=== PATIENT | male | born 1935 | race Caucasian/White ===

== ENCOUNTER 2019-08-29 11:27 | Emergency (ER) | payer MEDICARE, MEDICAID, SELFPAY ==
[2019-08-29] VITALS (9 sets, daily range): BP systolic 107–133; BP diastolic 64–101; PULSE 59–72; RESP 16–18; TEMP 36.6–37.1; O2SAT 95–97; BMI 21.1
--- NOTE | 2019-08-29 11:21 | ED_ITS ---
Entered by Callie Puga, acting as scribe for Melvin Morales MD HPI - Chest Pain General: Stated Complaint: CP/SOB Coding Level of Care Code ED Electrical Products Engineer for Yoana Shannon
--- NOTE | 2019-08-29 11:21 | W.ED.CHESTPA ---
HPI - Chest Pain General: Stated Complaint: CP/SOB Coding Level of Care Code ED Cardiovascular Operating Room Nurse for Yoana Shannon
--- NOTE | 2019-08-29 11:22 | ED_ITS ---
Entered by Callie Puga, acting as scribe for Melvin Morales MD HPI - SOB/Dyspnea General: Chief Complaint: Shortness of Breath/Dyspnea Stated Complaint: CP/SOB Time Seen by Provider: 08/29/19 11:22 Source: patient Mode of arrival: EMS Limitations: no limitations History of Present Illness: HPI Narrative: 83 yo Male presents to ED with complaint of shortness of breath and chest pain that has resolved. Pt states that he became short of breath this morning. Pt states that he isn't having any pain at this time. Per EMS, patient was given aspirin prior to arrival. MD elicited complaint: shortness of breath and chest pain Pertinent past history: diabetes Onset (ago): hour(s) (this morning) Timing: improved Known history of: diabetes Associated symptoms: Reports chest pain; Deny abdominal pain, fever(s), nausea, polyuria or vomiting Review of Systems Const: Denies: fever or chills Eyes: Denies: change in vision ENMT: Denies: throat pain or mouth pain Card: Reports: chest pain Resp: Reports: shortness of breath GI: Denies: abdominal pain, nausea, vomiting or diarrhea Musc: Denies: back pain or joint pain Skin/Breast: Denies: rash Neuro: Denies: headache or behavioral changes Psych: Denies: depression Endo: Denies: excessive urination Geoff/Lymph: Denies: easy bruising All/Imm: Denies: hives PFSH ED PFSH: Statuses (acute, chronic, etc) shown below reflect problem list status as previously entered and may not be historically accurate Medical History (Updated 08/29/19 @ 14:37 by Melvin Morales MD) Acute OK (Acute) Borderline hyperlipidemia (Acute) CAD (coronary artery disease) (Acute) Diabetes (Acute) Diverticulitis (Acute) HTN (hypertension) (Acute) Hydrocele (Acute) Hyperglycemia (Acute) Renal insufficiency (Acute) Surgical History (Updated 08/29/19 @ 11:32 by Callie Puga) History of appendectomy (Acute) History of hernia repair (Acute) Social History Smoking and tobacco status: never smoked Physical Exam Const: COMMON NORMALS: no apparent distress, oriented x3 and healthy appearing HENMT: COMMON NORMALS: normocephalic and external nose normal HEAD & SCALP: normocephalic NOSE: external nose normal Eye: COMMON NORMALS: PERRL PUPIL: Yes PERRL Neck/C-Spine: COMMON NORMALS: full ROM and no lymphadenopathy Chest: COMMONS NORMALS: inspection of chest normal Resp: COMMON NORMALS: normal respiratory effort, no use of accessory muscles and clear to auscultation bilaterally AUSCULTATION: clear to auscultation chet aterally Cardio: COMMON NORMALS: regular rate and regular rhythm RATE: regular rate RHYTHM: regular rhythm GI: COMMON NORMALS: normal to inspection, nondistended, normoactive bowel sounds, soft to palpation, non-tender and no masses PALPATION: Yes soft Back/Pelvis: THORACIC SPINE/UPPER BACK: Yes normal to inspection Extremity: COMMON NORMALS: normal to inspection, full ROM and normal capillary refill Neuro: COMMON NORMALS: oriented x3 Psych: COMMON NORMALS: mental status grossly normal and cooperative Skin: COMMON NORMALS: no rashes or lesions noted GENERAL SKIN EXAM: no rashes or lesions noted Course Vital Signs: Vital signs: Vital Signs Temperature 98.8 F 08/29/19 16:35 Pulse Rate 70 08/29/19 16:35 Respiratory Rate 16 08/29/19 16:35 Blood Pressure 132/72 08/29/19 16:35 Pulse Oximetry 97 08/29/19 16:35 MDM - SOB/Dyspnea MDM Narrative: Medical decision making narrative: Patient presents here with chest pain and dyspnea that is resolved. Patient is well-appearing here and has normal EKGs and normal x-ray. Patient's repeat troponin was negative. Patient has no signs of acute coronary event. Patient is stable for discharge and is to follow-up with his primary care doctor in 3 to 5 days and return to the ER if worsening. Lab Data: Labs: Lab Results 08/29/19 08/29/19 08/29/19 Range/Units 11:50 11:50 11:50 WBC 3.8 L (4.0-10.0) 10^3/ uL RBC 4.19 (4.1-5.3) 10^6/u L Hgb 12.3 (11.7-16.6) g/dL Hct 36.9 L (42.0-52.0) % MCV 88.1 (80-94) fL MCH 29.4 (28.0-34.0) pg MCHC 33.3 (30.0-36.0) g/dL RDW 12.6 (12.1-15.1) % Plt Count 160 (130-400) 10^3/c mm MPV 10.7 H (7.4-10.4) fL Neut % (Auto) 67.7 % Lymph % (Auto) 21.5 % [place] % (Auto) 7.4 % Eos % (Auto) 2.9 % Baso % (Auto) 0.5 % Neut # (Auto) 2.5 (1.8-7.7) 10^3/u L Lymph # (Auto) 0.8 (0.8-4.8) 10^3/u L [place] # (Auto) 0.3 (0.2-0.9) 10^3/u L Eos # (Auto) 0.1 (0.0-0.8) 10^3/u L Baso # (Auto) 0.0 (0.0-0.1) 10^3/u L Nucleated RBC % (a uto) 0 % Nucleated RBCs # 0.0 /100WBC PT 15.70 H (10.5-13.3) SECO NDS INR 1.21 H (0.8-1.2) Sodium 140 (136-145) mmol/L Potassium 4.0 (3.5-5.1) mmol/L Chloride 104 (98-107) mmol/L Carbon Dioxide 26 (22-29) mmol/L Anion Gap 14.0 (5-19) BUN 19 (8-23) mg/dL Creatinine 1.0 (0.7-1.2) mg/dL Glucose 228 H (74-106) mg/dL Calcium 9.0 (8.8-10.2) mg/Dl Total Bilirubin 0.3 (0.15-1.2) mg/dL AST 11 (0-40) U/L ALT 10 (0-41) U/L Alkaline Phosphata se 75 (40-130) IU/L Troponin T Baselin e (0-15) ng/mL Troponin T 120 Min cherelle (0-15) ng/mL Delta Troponin T (0-10) ABS# NT-Pro-B Natriuret Pep 670 H (0-450) pg/mL Total Protein 6.6 (6.6-8.7) g/dL Albumin 3.6 (3.5-5.2) g/dL Globulin 3.0 (1.3-4.6) g/dL 08/29/19 08/29/19 Range/Units 11:50 13:51 WBC (4.0-10.0) 10^3/ uL RBC (4.1-5.3) 10^6/u L Hgb (11.7-16.6) g/dL Hct (42.0-52.0) % MCV (80-94) fL MCH (28.0-34.0) pg MCHC (30.0-36.0) g/dL RDW (12.1-15.1) % Plt Count (130-400) 10^3/c mm MPV (7.4-10.4) fL Neut % (Auto) % Lymph % (Auto) % [place] % (Auto) % Eos % (Auto) % Baso % (Auto) % Neut # (Auto) (1.8-7.7) 10^3/u L Lymph # (Auto) (0.8-4.8) 10^3/u L [place] # (Auto) (0.2-0.9) 10^3/u L Eos # (Auto) (0.0-0.8) 10^3/u L Baso # (Auto) (0.0-0.1) 10^3/u L Nucleated RBC % (a uto) % Nucleated RBCs # /100WBC PT (10.5-13.3) SECO NDS INR (0.8-1.2) Sodium (136-145) mmol/L Potassium (3.5-5.1) mmol/L Chloride (98-107) mmol/L Carbon Dioxide (22-29) mmol/L Anion Gap (5-19) BUN (8-23) mg/dL Creatinine (0.7-1.2) mg/dL Glucose (74-106) mg/dL Calcium (8.8-10.2) mg/Dl Total Bilirubin (0.15-1.2) mg/dL AST (0-40) U/L ALT (0-41) U/L Alkaline Phosphata se (40-130) IU/L Troponin T Baselin e 139 H* (0-15) ng/mL Troponin T 120 Min cherelle 137.70 H (0-15) ng/mL Delta Troponin T -1.30 L (0-10) ABS# NT-Pro-B Natriuret Pep (0-450) pg/mL Total Protein (6.6-8.7) g/dL Albumin (3.5-5.2) g/dL Globulin (1.3-4.6) g/dL Imaging Data^: CXR: Radiologist's impression: [address] [address] XRay Report Signed Patient: Dylan Antonio JRUnit #: [id number] : 1936Acct#:[id number] Age/Sex: 83 / MADM Date: 08/29/19 Loc: ERRoom/Bed: Attending Dr: Ordering Provider/Ordering MD: Melvin Morales MD Date of Service: 08/29/19 Procedure(s): XR chest 1V portable 26031 Accession Number(s): [id number] Report Number: [id number] WS: [id number] PORTABLE CHEST HISTORY: cough COMPARISON: 06/11/2019 Slight elevation of the RIGHT hemidiaphragm. Improved aeration of the RIGHT lower lobe and middle lobe. No pneumonia. Normal vasculature. No pleural effusion or pneumothorax. Cardiac size: Normal. Mediastinum/Aorta: 2 partially calcified ectatic aorta. No osseous abnormality seen. XR/XR chest 1V portable [id number] IMPRESSION: 1. Resolved pneumonia RIGHT middle lobe and RIGHT lower lobe. 2. Atherosclerosis aorta. Dictated By:Lalita Carroll DO Signed By:Lalita Carroll DOSigned Date/Time:08/29/19 1213 DD/ 1212 EKG Data^: EKG 1: Attestation: I personally reviewed and interpreted this EKG as follows: EKG Interpretation Date: 08/29/19 EKG interpretation time: 11:21 Interpretation: nsr hr [address] or t wave abnormalities qrs 108 qtc 461 incomplete rbb unchanged ekg from 06/11/19 EKG 2: Attestation: I personally reviewed and interpreted this EKG as follows: EKG Interpretation Date: 08/29/19 EKG interpretation time: 13:11 Interpretation: nsr hr [address] or t wave abnormalities qrs 114 qtc 476 rbbb unchanged from previous Discharge Plan Discharge Patient Disposition: Home, Self-Care Clinical Impression: Acute dyspnea Condition: Stable Prescriptions: No Action carvedilol 6.25 mg Tablet 6.25 mg PO BID RF: 0 isosorbide mononitrate 30 mg Tablet Extended Release 24 Hr 60 mg PO QAM RF: 0 Zoloft 100 mg Tablet 200 mg PO BEDTIME RF: 0 Plavix 75 mg Tablet 75 mg PO DAILY RF: 0 Aspir-81 81 mg Tablet,Delayed Release (Dr/Ec) 81 mg PO DAILY RF: 0 Flomax 0.4 mg Capsule 0.4 mg PO DAILY RF: 0 Zocor 20 mg Tablet 20 mg PO DAILY RF: 0 Zantac 150 mg Tablet 150 mg PO BID RF: 0 lisinopril 10 mg Tablet 10 mg PO DAILY RF: 0 Nitrostat 0.4 mg Tablet, Sublingual 0.4 mg SUBLINGUAL Q5M PRN (Reason: Chest Pain) RF: 0 Levemir FlexTouch U-100 Insuln 100 unit/mL (3 mL) Insulin Pen See Rx Instructions .ROUTE .COMPLEX RF: 0 Discharge Orders: Discharge Order (Routine); Ordered 08/29/19 Ordered By: Melvin Morales Referrals: Tiffany Jain DO [Family Provider] - 4-7 days Discharge Diet: Advance as tolerated Discharge Activity: Resume usual activity Patient Instructions: Dyspnea (ED) Discharge Date/Time: 08/29/19 16:00 Coding Level of Care Code ED Library Science Professor for Chg Fwd Exam Problem Focused The documentation recorded by the Edd tobar Carmen, accurately reflects the service I personally performed and the decisions made by Carmen martin Korby, MD
--- NOTE | 2019-08-29 11:24 | XR_ITS ---
WS: [id number] PORTABLE CHEST HISTORY: cough COMPARISON: 06/11/2019 Slight elevation of the RIGHT hemidiaphragm. Improved aeration of the RIGHT lower lobe and middle lob e. No pneumonia. Normal vasculature. No pleural effusion or pneumothorax. Cardiac size: Normal. Mediastinum/Aorta: 2 partially calcified ectatic aorta. No osseous abnormality seen. XR/XR chest 1V portable [id number] IMPRESSION: 1. Resolved pneumonia RIGHT middle lobe and RIGHT lower lobe. 2. Atherosclerosis aorta.
--- NOTE | 2019-08-29 11:25 | ECG_ITS ---
Measurements Intervals [place] Rate: 72 P: 45 [place]: 253 QRS: -22 QRSD: 108 T: 97 QT: 437 QTc: 480 SINUS RHYTHM WITH FIRST DEGREE AV BLOCK BORDERLINE LEFT AXIS DEVIATION [QRS AXIS < -20] INCOMPLETE RIGHT BUNDLE BRANCH BLOCK [90+ ms QRS DURATION, TERMINAL R IN V1/V2, 40+ ms S IN I/aVL/V4/V5/V6] ABNORMAL QRS-T ANGLE [QRS-T AXIS DIFFERENCE > 60] PROLONGED QT INTERVAL Compared to ECG 06/11/2019 14:42:58 Incomplete right bundle-branch block now present Prolonged QT interval now present Left anterior fascicular block no longer present Electronically Signed On 08-29-2019 17:22:30 TRAINING MANAGER by Jasvir Ospina M.D. [id number]
[2019-08-29 12:01] LABS: Basophils % 0.5 %; Eosinophils # 0.1 10^3/uL (0.0-0.8); Eosinophils % 2.9 %; Hematocrit 36.9 % (42.0-52.0); Hemoglobin 12.3 g/dL (11.7-16.6); Lymphocytes # 0.8 10^3/uL (0.8-4.8); Lymphocytes % 21.5 %; Mean Corpuscular HGB Conc 33.3 g/dL (30.0-36.0); Mean Corpuscular Hemoglobin 29.4 pg (28.0-34.0); Mean Corpuscular Volume 88.1 fL (80-94); Mean Platelet Volume 10.7 fL (7.4-10.4); Monocytes # 0.3 10^3/uL (0.2-0.9); Monocytes % 7.4 %; Neutrophils # 2.5 10^3/uL (1.8-7.7); Neutrophils % 67.7 %; Nucleated Red Blood Cells % 0 %; Platelet Count 160 10^3/cmm (130-400); Red Blood Count 4.19 10^6/uL (4.1-5.3); Red Cell Distribution Width 12.6 % (12.1-15.1); White Blood Count 3.8 10^3/uL (4.0-10.0)
[2019-08-29 12:14] LABS: INR 1.21 (0.8-1.2)
[2019-08-29 12:32] LABS: Alanine Aminotransferase 10 U/L (0-41); Albumin Level 3.6 g/dL (3.5-5.2); Alkaline Phosphatase 75 IU/L (40-130); Aspartate Amino Transferase 11 U/L (0-40); Blood Urea Nitrogen 19 mg/dL (8-23); Carbon Dioxide 26 mmol/L (22-29); Chloride 104 mmol/L (98-107); Glucose 228 mg/dL (74-106); NT Pro B Type Natriuretic Pept 670 pg/mL (0-450); Sodium 140 mmol/L (136-145); Total Bilirubin 0.3 mg/dL (0.15-1.2); Total Protein 6.6 g/dL (6.6-8.7)
[2019-08-29 12:38] LABS: Troponin(5th) Baseline 139 ng/mL (0-15)
--- NOTE | 2019-08-29 13:25 | ECG_ITS ---
Measurements Intervals [place] Rate: 64 P: 18 MT: 266 QRS: -38 QRSD: 114 T: 91 QT: 467 QTc: 482 SINUS RHYTHM WITH FIRST DEGREE AV BLOCK LEFT AXIS DEVIATION [QRS AXIS < -30] INCOMPLETE RIGHT BUNDLE BRANCH BLOCK [90+ ms QRS DURATION, TERMINAL R IN V1/V2, 40+ ms S IN I/aVL/V4/V5/V6] ABNORMAL QRS-T ANGLE [QRS-T AXIS DIFFERENCE > 60] PROLONGED QT INTERVAL Compared to ECG 06/11/2019 14:42:58 Left-axis deviation now present Incomplete right bundle-branch block now present Prolonged QT interval now present Left anterior fascicular block no longer present Electronically Signed On 08-29-2019 17:29:28 LICENSED INSURANCE AGENT by Jasvir Ospina M.D. [id number]
== END 2019-08-29 16:00 | disposition home or self-care (01) ==
LOC: ER 14:41
PROVIDERS: Emergency Provider Emergency Medicine; Family Provider Family Medicine
DX: R06.00 Dyspnea, unspecified (principal); Z79.02 Long term (current) use of antithrombotics/antiplatelets; Z79.82 Long term (current) use of aspirin; Z79.4 Long term (current) use of insulin; I25.2 Old myocardial infarction; E78.5 Hyperlipidemia, unspecified; I25.10 Atherosclerotic heart disease of native coronary artery without angina pectoris; E11.9 Type 2 diabetes mellitus without complications; I10 Essential (primary) hypertension
CPT/HCPCS: 36415; 71045; 80053; 83880; 84484; 85025; 85610; 93005; 99282

== ENCOUNTER 2019-09-12 04:09 | Inpatient (IN) | payer MEDICARE, MEDICAID, SELFPAY ==
[2019-09-12] VITALS (10 sets, daily range): BP systolic 116–206; BP diastolic 66–104; PULSE 71–114; RESP 16–32; TEMP 36.6–37.3; O2SAT 90–94; BMI 21.7
--- NOTE | 2019-09-12 04:17 | ED_ITS ---
Entered by Macy Harding, acting as scribe for Sergio Nash DO HPI - Chest Pain General: Chief Complaint: Chest Pain Stated Complaint: chest pain/sob Time Seen by Provider: 09/12/19 04:17 Source: EMS Mode of arrival: EMS History of Present Illness: HPI narrative: 83 y/o male presents to the ED with complaint of chest pain and SOB. Pt was seen here recently for the same symptoms. EMS reports his pressure was 220/130 upon their arrival. Pt had relief of pain after NTG/aspirin/morphine (05/19 to 09/19). MD complaint: chest pain Onset (ago): hour(s) Prior episodes: Yes Onset: during rest Severity: moderate Pain scale (0-10): 2 Relieving factors: nitroglycerin Associated symptoms: Reports dyspnea; Deny abdominal pain, fever(s), nausea, palpitations or vomiting Treatment prior to arrival: aspirin and nitroglycerin Review of Systems Const: Denies: fever or chills Eyes: Denies: change in vision or blurry vision ENMT: Denies: post nasal drip or facial/sinus pain Card: Reports: chest pain and shortness of breath when lying down; Denies: palpitations, irregular heart rhythm, edema or swelling of feet/ankles Resp: Reports: shortness of breath and non-productive cough; Denies: productive cough or wheezing GI: Denies: abdominal pain, nausea, vomiting, rectal pain, blood in stool or black tarry stool : Denies: difficulty urinating or blood in urine Musc: Reports: back pain; Denies: redness or joint warmth Skin/Breast: Denies: rash, itching or redness Neuro: Reports: weakness in extremities; Denies: headache or seizure-like activity PFSH ED PFSH: Statuses (acute, chronic, etc) shown below reflect problem list status as previously entered and may not be historically accurate Medical History (Updated 09/12/19 @ 06:14 by Elvin Evnas MD) Acute OK (Acute) Aspiration pneumonia (Acute) Borderline hyperlipidemia (Acute) CAD (coronary artery disease) (Acute) CVA (cerebral vascular accident) (Acute) Diabetes (Acute) Diverticulitis (Acute) HTN (hypertension) (Acute) Hydrocele (Acute) Hyperglycemia (Acute) Ischemic cardiomyopathy (Acute) Myocardial infarction (Acute) Renal insufficiency (Acute) Surgical History (Updated 08/29/19 @ 11:32 by Callie Puga) History of appendectomy (Acute) History of hernia repair (Acute) Social History (Updated 09/12/19 @ 06:14 by Elvin Evans MD) Smoking and tobacco status: never smoked Alcohol intake: never Substance/Drug Use: never Housing: Prison Physical Exam Const: GENERAL APPEARANCE: lethargic ORIENTATION/CONSCIOUSNESS: Yes lethargic HENMT: COMMON NORMALS: normocephalic, external ears normal and external nose normal HEAD & SCALP: normocephalic; no scalp tenderness FACE & SINUS: normal facial exam NOSE: external nose normal and no nasal discharge EXTERNAL EAR: Yes external ears normal TEETH & GINGIVA: no abnormal tooth and associated gingiva Eye: COMMON NORMALS: EOMs intact bilaterally EYELID: eyelids normal CONJUNCTIVA: Yes conjunctiva abnormal and Yes other (right eye conjunctival injection/swelling) Chest: COMMONS NORMALS: inspection of chest normal CHEST: No tenderness Resp: EFFORT & INSPECTION: Yes tachypneic, Yes respiratory distress (mild), No retractions, No uses accessory muscles and No tracheal deviation AUSCULTATION: rales bilateral, no rhonchi, no wheezes and lung sounds not diminished Cardio: COMMON NORMALS: regular rhythm RATE: tachycardic RHYTHM: regular rhythm HEART SOUNDS: no murmurs PERIPHERAL PULSES: radial pulses present GI: INSPECTION: No abdominal distension AUSCULTATION: No hyperactive bowel sounds and No hypoactive bowel sounds PALPATION: No guarding and No rigid PERCUSSION: no dullness to percussion and no tympanic to percussion Extremity: OTHER: no LE edema Neuro: SENSORIUM/ORIENTATION: Yes lethargic Skin: COMMON NORMALS: no rashes or lesions noted GENERAL SKIN EXAM: no rashes or lesions noted and pallor Course ED course: 83-year-old gentleman who awoke with acute onset chest pain and shortness of breath this morning. His pain was 10 out of 10. He was quite hypertensive with blood pressures in the 220s systolic. He improved with nitroglycerin in the ambulance on the way here to some degree. He has Nitropaste on his chest, and his pain is much improved. His blood pressure is 160 systolic. His heart rates down from 1 30-1 15. His saturations are above 90% on 5 L high flow nasal cannula. His white blood cell count is 5. His hemoglobin is 13. His potassium is 3.2. His first troponin is 100. His creatinine is only 1. His BNP is not terribly elevated, but given the acute nature, may not have had time to elevate. His chest x-ray shows an effusion in the right base and to a lesser degree right base. Consultations: Consultation #1: floridalma Time: 06:10 Vital Signs: Vital signs: Vital Signs Temperature 98.4 F 09/12/19 05:59 Pulse Rate 113 H 09/12/19 05:59 Respiratory Rate 32 H 09/12/19 05:59 Blood Pressure 167/90 09/12/19 05:59 Pulse Oximetry 92 09/12/19 05:59 MDM - Chest Pain Lab Data: Labs: Lab Results 09/12/19 09/12/19 09/12/19 Range/Units 04:30 04:50 05:00 WBC 5.0 (4.0-10.0) 10^3/ uL RBC 4.32 (4.1-5.3) 10^6/u L Hgb 12.7 (11.7-16.6) g/dL Hct 38.7 L (42.0-52.0) % MCV 89.6 (80-94) fL MCH 29.4 (28.0-34.0) pg MCHC 32.8 (30.0-36.0) g/dL RDW 12.1 (12.1-15.1) % Plt Count 135 (130-400) 10^3/c mm MPV 10.2 (7.4-10.4) fL Neut % (Auto) 86.8 % Lymph % (Auto) 6.7 % [place] % (Auto) 5.1 % Eos % (Auto) 0.8 % Baso % (Auto) 0.4 % Neut # (Auto) 4.3 (1.8-7.7) 10^3/u L Lymph # (Auto) 0.3 L (0.8-4.8) 10^3/u L [place] # (Auto) 0.3 (0.2-0.9) 10^3/u L Eos # (Auto) 0.0 (0.0-0.8) 10^3/u L Baso # (Auto) 0.0 (0.0-0.1) 10^3/u L Nucleated RBC % (a uto) 0 % Nucleated RBCs # 0.0 /100WBC PT (10.5-13.3) SECO NDS INR (0.8-1.2) APTT (23.9-36.7) SECO NDS Specimen Type Arterial Sample Site Radial, right ABG pH 7.38 (7.35-7.45) ABG pCO2 42.4 (35-45) mmHg ABG pO2 68.1 L (80.0-100.0) mmH g ABG HCO3 25.2 (22-26) mmol/L ABG Base Excess -0.1 (-2.0-2.0) mmol/ L Mark Test Pos Hematocrit 39.7 L (42-52) % O2 Delivery Device [employer] ID ellpe Sodium (136-145) mmol/L Potassium (3.5-5.1) mmol/L Chloride (98-107) mmol/L Carbon Dioxide (22-29) mmol/L Anion Gap (5-19) BUN (8-23) mg/dL Creatinine (0.7-1.2) mg/dL Glucose (74-106) mg/dL Lactate (0.5-2.2) mmol/L Calcium (8.5-10.5) mg/dL Total Bilirubin (0.15-1.2) mg/dL AST (0-40) U/L ALT (0-41) U/L Alkaline Phosphata se (40-130) IU/L Troponin T Baselin e (0-15) ng/mL NT-Pro-B Natriuret Pep (0-450) pg/mL Total Protein (6.6-8.7) g/dL Albumin (3.5-5.2) g/dL Globulin (1.3-4.6) g/dL Urine Color (Yellow) Urine Appearance (CLEAR) Urine pH (5-7) Ur Specific Gravit y (1.005-1.030) Urine Protein (Negative) Urine Glucose (UA) (Normal) Urine Ketones (Negative) Urine Occult Blood (Negative) Urine Nitrate (Negative) Urine Bilirubin (NEGATIVE) Urine Urobilinogen (Negative) mg/dL Ur Leukocyte [place] ase (Negative) Urine RBC (0-2) /hpf Urine WBC (0-5) /hpf Ur Squamous Epith Cells (0-5) Urine Bacteria (NONE) Influenza Type A A g Negative (Negative) POC Influenza B Ag Negative (Negative) 09/12/19 09/12/19 09/12/19 Range/Units 05:00 05:00 05:00 WBC (4.0-10.0) 10^3/ uL RBC (4.1-5.3) 10^6/u L Hgb (11.7-16.6) g/dL Hct (42.0-52.0) % MCV (80-94) fL MCH (28.0-34.0) pg MCHC (30.0-36.0) g/dL RDW (12.1-15.1) % Plt Count (130-400) 10^3/c mm MPV (7.4-10.4) fL Neut % (Auto) % Lymph % (Auto) % [place] % (Auto) % Eos % (Auto) % Baso % (Auto) % Neut # (Auto) (1.8-7.7) 10^3/u L Lymph # (Auto) (0.8-4.8) 10^3/u L [place] # (Auto) (0.2-0.9) 10^3/u L Eos # (Auto) (0.0-0.8) 10^3/u L Baso # (Auto) (0.0-0.1) 10^3/u L Nucleated RBC % (a uto) % Nucleated RBCs # /100WBC PT 15.70 H (10.5-13.3) SECO NDS INR 1.20 (0.8-1.2) APTT 30.0 (23.9-36.7) SECO NDS Specimen Type Sample Site ABG pH (7.35-7.45) ABG pCO2 (35-45) mmHg ABG pO2 (80.0-100.0) mmH g ABG HCO3 (22-26) mmol/L ABG Base Excess (-2.0-2.0) mmol/ L Mark Test Hematocrit (42-52) % O2 Delivery Device [employer] ID Sodium 141 (136-145) mmol/L Potassium 3.2 L (3.5-5.1) mmol/L Chloride 103 (98-107) mmol/L Carbon Dioxide 24 (22-29) mmol/L Anion Gap 17.2 (5-19) BUN 18 (8-23) mg/dL Creatinine 1.0 (0.7-1.2) mg/dL Glucose 187 H (74-106) mg/dL Lactate 1.4 (0.5-2.2) mmol/L Calcium 9.3 (8.5-10.5) mg/dL Total Bilirubin 0.5 (0.15-1.2) mg/dL AST 14 (0-40) U/L ALT 11 (0-41) U/L Alkaline Phosphata se 85 (40-130) IU/L Troponin T Baselin e (0-15) ng/mL NT-Pro-B Natriuret Pep 344 (0-450) pg/mL Total Protein 7.4 (6.6-8.7) g/dL Albumin 4.2 (3.5-5.2) g/dL Globulin 3.2 (1.3-4.6) g/dL Urine Color (Yellow) Urine Appearance (CLEAR) Urine pH (5-7) Ur Specific Gravit y (1.005-1.030) Urine Protein (Negative) Urine Glucose (UA) (Normal) Urine Ketones (Negative) Urine Occult Blood (Negative) Urine Nitrate (Negative) Urine Bilirubin (NEGATIVE) Urine Urobilinogen (Negative) mg/dL Ur Leukocyte [place] ase (Negative) Urine RBC (0-2) /hpf Urine WBC (0-5) /hpf Ur Squamous Epith Cells (0-5) Urine Bacteria (NONE) Influenza Type A A g (Negative) POC Influenza B Ag (Negative) 09/12/19 09/12/19 Range/Units 05:00 05:08 WBC (4.0-10.0) 10^3/ uL RBC (4.1-5.3) 10^6/u L Hgb (11.7-16.6) g/dL Hct (42.0-52.0) % MCV (80-94) fL MCH (28.0-34.0) pg MCHC (30.0-36.0) g/dL RDW (12.1-15.1) % Plt Count (130-400) 10^3/c mm MPV (7.4-10.4) fL Neut % (Auto) % Lymph % (Auto) % [place] % (Auto) % Eos % (Auto) % Baso % (Auto) % Neut # (Auto) (1.8-7.7) 10^3/u L Lymph # (Auto) (0.8-4.8) 10^3/u L [place] # (Auto) (0.2-0.9) 10^3/u L Eos # (Auto) (0.0-0.8) 10^3/u L Baso # (Auto) (0.0-0.1) 10^3/u L Nucleated RBC % (a uto) % Nucleated RBCs # /100WBC PT (10.5-13.3) SECO NDS INR (0.8-1.2) APTT (23.9-36.7) SECO NDS Specimen Type Sample Site ABG pH (7.35-7.45) ABG pCO2 (35-45) mmHg ABG pO2 (80.0-100.0) mmH g ABG HCO3 (22-26) mmol/L ABG Base Excess (-2.0-2.0) mmol/ L Mark Test Hematocrit (42-52) % O2 Delivery Device [employer] ID Sodium (136-145) mmol/L Potassium (3.5-5.1) mmol/L Chloride (98-107) mmol/L Carbon Dioxide (22-29) mmol/L Anion Gap (5-19) BUN (8-23) mg/dL Creatinine (0.7-1.2) mg/dL Glucose (74-106) mg/dL Lactate (0.5-2.2) mmol/L Calcium (8.5-10.5) mg/dL Total Bilirubin (0.15-1.2) mg/dL AST (0-40) U/L ALT (0-41) U/L Alkaline Phosphata se (40-130) IU/L Troponin T Baselin e 105 H* (0-15) ng/mL NT-Pro-B Natriuret Pep (0-450) pg/mL Total Protein (6.6-8.7) g/dL Albumin (3.5-5.2) g/dL Globulin (1.3-4.6) g/dL Urine Color Yellow (Yellow) Urine Appearance Clear (CLEAR) Urine pH 5 (5-7) Ur Specific Gravit y 1.015 (1.005-1.030) Urine Protein 1+ H (Negative) Urine Glucose (UA) Trace H (Normal) Urine Ketones Negative (Negative) Urine Occult Blood Neg (Negative) Urine Nitrate Negative (Negative) Urine Bilirubin Neg (NEGATIVE) Urine Urobilinogen Norm (Negative) mg/dL Ur Leukocyte [place] ase Negative (Negative) Urine RBC Rare (0-2) /hpf Urine WBC 0-4 H (0-5) /hpf Ur Squamous Epith Cells 0-4 H (0-5) Urine Bacteria 1+ H (NONE) Influenza Type A A g (Negative) POC Influenza B Ag (Negative) Discharge Plan Discharge Prescriptions: No Action carvedilol 6.25 mg Tablet 6.25 mg PO BID RF: 0 isosorbide mononitrate 30 mg Tablet Extended Release 24 Hr 60 mg PO QAM RF: 0 sertraline [Zoloft] 100 mg Tablet 200 mg PO BEDTIME RF: 0 clopidogrel [Plavix] 75 mg Tablet 75 mg PO DAILY RF: 0 aspirin [Aspir-81] 81 mg Tablet,Delayed Release (Dr/Ec) 81 mg PO DAILY RF: 0 tamsulosin [Flomax] 0.4 mg Capsule 0.4 mg PO DAILY RF: 0 simvastatin [Zocor] 20 mg Tablet 20 mg PO DAILY RF: 0 ranitidine HCl [Zantac] 150 mg Tablet 150 mg PO BID RF: 0 lisinopril 10 mg Tablet 10 mg PO DAILY RF: 0 nitroglycerin [Nitrostat] 0.4 mg Tablet, Sublingual 0.4 mg SUBLINGUAL Q5M PRN (Reason: Chest Pain) RF: 0 Levemir FlexTouch U-100 Insuln 100 unit/mL (3 mL) Insulin Pen See Rx Instructions .ROUTE .COMPLEX RF: 0 Coding Level of Care Code ED Instructional Support Technician for Chg Shiva The documentation recorded by the Mehdi tobar Ashley, accurately reflects the service I personally performed and the decisions made by Saad martin Jeremy John, DO Sep 12, 2019 04:09
--- NOTE | 2019-09-12 04:25 | ECG_ITS ---
Measurements Intervals [place] Rate: 102 P: 56 [place]: 221 QRS: -65 QRSD: 120 T: 87 QT: 356 QTc: 465 SINUS TACHYCARDIA WITH FIRST DEGREE AV BLOCK LEFT ANTERIOR FASCICULAR BLOCK [QRS AXIS <= -45, QR IN I, RS IN II] Compared to ECG 08/29/2019 13:11:28 Left anterior fascicular block now present Sinus rhythm no longer present Left-axis deviation no longer present Incomplete right bundle-branch block no longer present Prolonged QT interval no longer present Electronically Signed On 09-12-2019 20:58:04 ANGIOGRAPHER by Frieda Luna M.D. [id number]
--- NOTE | 2019-09-12 04:25 | XRR_ITS ---
PROCEDURE INFORMATION: Exam: XR Chest, 1 View Exam date and time: 09/12/2019 5:02 AM Age: 83 years old Clinical indication: Shortness of breath; Additional info: SOB TECHNIQUE: Imaging protocol: XR of the chest Views: 1 view. COMPARISON: CR XR chest 1V portable [id number] 08/29/2019 11:45 AM FINDINGS: Lungs: Somewhat limited exam. Mild basilar airspace consolidation left greater than right. Recommend followup 2 view chest. Lucency below the right hemidiaphragm is likely bowel. Pleural space: Unremarkable. No pleural effusion. No pneumothorax. Heart/Mediastinum: Unremarkable. No cardiomegaly. Bones/joints: Unremarkable. XR/XR chest 1V portable [id number] IMPRESSION: Somewhat limited exam. Mild basilar airspace consolidation left greater than right. Recommend followup 2 view chest. Lucency below the right hemidiaphragm is likely bowel.
[2019-09-12] MEDS: nitroglycerin 1 gm/inch oint Pkt 1.5 INCH TOPICAL (04:36)
[2019-09-12 04:41] LABS: ABG PCO2 42.4 mmHg (35-45); ABG PH Result 7.38 (7.35-7.45); Arterial Blood Gas Hematocrit 39.7 % (42-52); Base Excess ABG -0.1 mmol/L (-2.0-2.0); Blood Gas Allen Test Pos; Blood Gas Sample Site Radial, right; Blood Gas Sample Type Arterial; HCO3 ABG 25.2 mmol/L (22-26); Oxygen Device NC; PO2 ABG 68.1 mmHg (80.0-100.0)
[2019-09-12] MEDS: FUROsemide 10 mg/mL SDV 10mL 80 MG IVP (04:47)
[2019-09-12 05:11] LABS: Basophils % 0.4 %; Eosinophils % 0.8 %; Hematocrit 38.7 % (42.0-52.0); Hemoglobin 12.7 g/dL (11.7-16.6); Lymphocytes # 0.3 10^3/uL (0.8-4.8); Lymphocytes % 6.7 %; Mean Corpuscular HGB Conc 32.8 g/dL (30.0-36.0); Mean Corpuscular Hemoglobin 29.4 pg (28.0-34.0); Mean Corpuscular Volume 89.6 fL (80-94); Mean Platelet Volume 10.2 fL (7.4-10.4); Monocytes # 0.3 10^3/uL (0.2-0.9); Monocytes % 5.1 %; Neutrophils # 4.3 10^3/uL (1.8-7.7); Neutrophils % 86.8 %; Nucleated Red Blood Cells % 0 %; Platelet Count 135 10^3/cmm (130-400); Red Blood Count 4.32 10^6/uL (4.1-5.3); Red Cell Distribution Width 12.1 % (12.1-15.1)
[2019-09-12 05:26] LABS: Lactate (Lactic Acid level) 1.4 mmol/L (0.5-2.2)
[2019-09-12 05:33] LABS: NT Pro B Type Natriuretic Pept 344 pg/mL (0-450)
[2019-09-12 05:42] LABS: Troponin(5th) Baseline 105 ng/mL (0-15)
--- NOTE | 2019-09-12 05:42 | PC.NURSE ---
baseline trop 105
[2019-09-12 05:47] LABS: Influenza A by IFA Negative (Negative); Influenza B by IFA Negative (Negative)
[2019-09-12 05:55] LABS: Alanine Aminotransferase 11 U/L (0-41); Albumin Level 4.2 g/dL (3.5-5.2); Alkaline Phosphatase 85 IU/L (40-130); Anion Gap 17.2 (5-19); Aspartate Amino Transferase 14 U/L (0-40); Blood Urea Nitrogen 18 mg/dL (8-23); Calcium 9.3 mg/dL (8.5-10.5); Carbon Dioxide 24 mmol/L (22-29); Chloride 103 mmol/L (98-107); Globulin 3.2 g/dL (1.3-4.6); Glucose 187 mg/dL (74-106); Potassium 3.2 mmol/L (3.5-5.1); Sodium 141 mmol/L (136-145); Total Bilirubin 0.5 mg/dL (0.15-1.2); Total Protein 7.4 g/dL (6.6-8.7)
[2019-09-12 06:02] LABS: Add Urine Culture? No; Add Urine Microscopic? YES; Bacteria Urine 1+; Bilirubin Urine Neg (NEGATIVE); Blood Urine Neg (Negative); Glucose Urine UA Trace (Normal); Ketones Urine Negative (Negative); Leukocyte Esterase Urine Negative (Negative); Nitrate Urine Negative (Negative); Protein Urine 1+ (Negative); RBC Urine RARE /hpf (0-2); Specific Gravity, Urine 1.015 (1.005-1.030); Squamous Epithelial Cell Urine 0-4 (0-5); Urine Appearance Clear (CLEAR); Urine Color Yellow (Yellow); Urobilinogen Urine Norm (Negative); WBC Urine 0-4 /hpf (0-5); pH Urine 5 (5-7)
[2019-09-12] MEDS: metoprolol tartrate 1 mg/1 mL SDV 5 mL 2.5 MG IV (06:05)
--- NOTE | 2019-09-12 06:11 | P.HP_ITS ---
Providers/Chief Complaint Chief Complaint: hypoxic resp failure, cp, chf History of Present Illness Dylan Antonio JR is a 83 year old male who has history of hypertension, ischemic cardiomyopathy EF 30%, recent NSTEMI leading to heart failure, aspiration pneumonitis, CVA with right-sided residual weakness, hypertension, insulin-dependent diabetes, came in with chief complaint of shortness of breath. Patient's daughter is at the bedside who is endorsing that for the last 1 to 2 weeks he gets up at night feeling short of breath he has been having orthopnea and PND, his quality of life is getting poor on daily basis, he has been compliant with his medications, nowadays he is getting shortness of breath on mild exertion and at rest, he has not noticed any swelling of his lower extr emities, but he wakes up around 2:58 AM every night feeling shortness of breath. This morning around 2 AM he woke up with shortness of breath, at that time he was also having chest discomfort which she describes as epigastric pain, bandlike pattern extending from right costal margin to the left costal margin, because of this pain he was not able to breathe. Recently he has been having couple of episodes of loose stools as well. There has been no nausea, vomiting, fever, recent falls. I was called by the ER for admission of chest pain with primary edema due to hypertensive emergency because on arrival his blood pressure was 220/110, he was given Lasix and Nitropaste which reduces blood pressure, when I saw him his pressure was 160s systolic. I reviewed his chest x-ray which is showing air under right diaphragm. I discussed this x-ray with next ER physician on duty, he agrees that there is a possibility of air under diaphragm and we ordered CT abdomen in ER I discussed the possibility of discussed perforation with the daughter and discussed goals of care patient and his daughter both are in agreement of DNR/DNI Daughter's phone number is [phone] her name is Dion Review of Systems Const: Reports: chills, body aches, change in appetite, change in weight, fatigue and malaise Eyes: Reports: change in vision, blurry vision, eye discomfort, eye discharge and eye redness ENMT: Reports: hoarseness; Denies: throat pain Card: Reports: chest pain, lightheadedness, shortness of breath on exertion and shortness of breath when lying down; Denies: palpitations, irregular heart rhythm or swelling of feet/ankles Resp: Reports: shortness of breath and non-productive cough GI: Reports: abdominal pain, diarrhea and bloating; Denies: nausea, vomiting or vomiting blood : Reports: difficulty urinating, urinary hesitancy and change in urine stream; Denies: flank pain Musc: Denies: neck pain or back pain Skin/Breast: Reports: rash, redness and dry skin; Denies: non-healing lesion Neuro: Denies: headache Psych: Reports: change in appetite and memory loss Endo: Denies: excessive urination Geoff/Lymph: Denies: easy bruising All/Imm: Denies: hives Medications/Allergies Allergies Allergy/AdvReac Type Severity Reaction Status Date / Time No Known Allergies Allergy Verified 08/29/19 11:24 PFSH Acute PFSH: Statuses (acute, chronic, etc) shown below reflect problem list status as previously entered and may not be historically accurate Medical History (Updated 09/12/19 @ 07:08 by Elvin Evans MD) Acute [place] (Acute) Aspiration pneumonia (Acute) Borderline hyperlipidemia (Acute) CAD (coronary artery disease) (Acute) CVA (cerebral vascular accident) (Acute) Diabetes (Acute) Diverticulitis (Acute) HTN (hypertension) (Acute) Hydrocele (Acute) Hyperglycemia (Acute) Ischemic cardiomyopathy (Acute) Myocardial infarction (Acute) Renal insufficiency (Acute) Surgical History (Updated 08/29/19 @ 11:32 by Callie Puga) History of appendectomy (Acute) History of hernia repair (Acute) Social History (Updated 09/12/19 @ 06:14 by Elvin Evans MD) Smoking and tobacco status: never smoked Alcohol intake: never Substance/Drug Use: never Housing: [place] Vitals/I&O/Wt Last Vital Signs Temp 98.4 F 09/12/19 05:59 Pulse 113 H 09/12/19 05:59 Resp 32 H 09/12/19 05:59 BP 167/90 09/12/19 05:59 Pulse Ox 92 09/12/19 05:59 Weight last 48 hrs Weight 74.843 kg Physical Exam Narrative: EXAM NARRATIVE: Mr. Antonio is a very frail elderly male Seems dehydrated Right-sided hyperemic conjunctiva-with purulent discharge Sinus tachycardia, S1-S2 no JVD lower extremity no edema He has epigastric tenderness, tenderness to deep palpation as well, bowel sounds are very sluggish, no distention, mild rigidity positive Lower extremity no sign of ischemia gangrene or ulcer Patient was struggling to get out of the bed and stated he wanted to void urine Is very hard to assess cognitive impairment when I am not able to understand what he is articulating, his daughter is helping me to get the information Data : 09/12/19 05:00 09/12/19 05:00 Micro: Microbiology 09/12/19 05:00 Blood Culture - Preliminary Blood SPECIMEN COLLECTED A&P Assessment and plan (1) Abdominal pain: Status: Acute Code(s): R10.9 - Unspecified abdominal pain (2) Hypertensive emergency: Status: Acute Code(s): I16.1 - Hypertensive emergency (3) DNR (do not resuscitate): Status: Acute Code(s): Z66 - Do not resuscitate (4) Pulmonary edema: Status: Acute Code(s): J81.1 - Chronic pulmonary edema (5) Chest discomfort: Status: Acute Code(s): R07.89 - Other chest pain Additional A&P Information Acute onset of abdominal pain Abdomen is tender with rigidity, no leukocytosis, will check lactic acid, on BMP he is not acidotic, Suspicion for air under right diaphragm We will get CT abdomen on stat basis In case of colon perforation, he will be a very poor surgical candidate both because of reduced ejection fraction heart failure I will keep him n.p.o. for now until CT results are back, would avoid giving fluids because of hypertensive episode and reduced EF Chest pain/unstable angina I believe his symptoms are secondary to hypertensive emergency causing strain on his heart with reduced ejection fraction He is not complaining of active chest pain, EKG chronic changes, incomplete bifascicular block, however current hemodynamics and heart rate is stable I would continue his aspirin, Plavix, statins, Coreg He will be considered high risk for any intervention Stress-induced cardiomyopathy On previous admission echo showed diffuse hypokinesia of mid and apical segment of left ventricle Current troponin is 100, EKG showing chronic changes, Severely reduced ejection fraction of 30% Does not have AICD or LifeVest Ordered BNP is less than 400, mild pulmonary edema on chest x-ray, is saturating well on 4 L nasal cannula at the moment, Hypertensive emergency Troponin leak, chest discomfort Currently he is on Nitropaste, on arrival systolic blood pressure was 220/and diastolic 110 mmHg, currently his systolic is 160 mmHg which is at target with mean arterial pressure reduction of 25% I would continue his home regimen and remove Nitropatch in next few hours Hypokalemia: Repleted Will check mag level because he is rising risk for malignant arrhythmia CODE STATUS: DNR/DNI N.p.o. for now Attestations Medical Necessity Statement*: Anticipating history to cross more than 2 midnights because of concern for viscus perforation, hypertensive emergency Time Spent in Patient Care: 60 Coding Level of Care Code Acute Retail Consultant for Chg Fwd Diagnoses Abdominal pain R10.9 Hypertensive emergency I16.1 DNR (do not resuscitate) Z66 Pulmonary edema J81.1 Chest discomfort R07.89
--- NOTE | 2019-09-12 06:25 | ECG_ITS ---
Measurements Intervals [place] Rate: 93 P: 60 [place]: 249 QRS: -40 QRSD: 115 T: 81 QT: 484 QTc: 602 SINUS RHYTHM WITH FIRST DEGREE AV BLOCK LEFT AXIS DEVIATION [QRS AXIS < -30] MODERATE INTRAVENTRICULAR CONDUCTION DELAY [110+ ms QRS DURATION] PROLONGED QT INTERVAL CRITICAL TEST RESULT Compared to ECG 08/29/2019 13:11:28 Intraventricular conduction delay now present Incomplete right bundle-branch block no longer present Electronically Signed On 09-12-2019 21:06:27 DIRECTOR OF BUSINESS APPLICATIONS by Frieda Luna M.D. [id number] james
--- NOTE | 2019-09-12 06:46 | CTR_ITS ---
PROCEDURE INFORMATION: Exam: CT Abdomen And Pelvis With Contrast Exam date and time: 09/12/2019 6:49 AM Age: 83 years old Clinical indication: Abdominal pain; Prior surgery; Surgery type: Appendectomy. Hernia; Patient HX: Generalized abd pain and weakness. TECHNIQUE: Imaging protocol: Computed tomography of the abdomen and pelvis with intravenous contrast. Total DLP: 636.34 mGy-cm Radiation optimization: All CT scans at this facility use at least one of these dose optimization techniques: automated exposure control; mA and/or kV adjustment per patient size (includes targeted exams where dose is matched to clinical indication); or iterative reconstruction. Contrast material: OMNI 300; Contrast volume: 95 ml; Contrast route: 18G; COMPARISON: CT abdomen pelvis w con* [id number] 02/08/2014 12:33 PM FINDINGS: Large areas of airspace consolidation in the right middle lobe, right lower lobe, and left lower lobe. Appearance is consistent with pneumonia. This is new. The liver, gallbladder, pancreas, and adrenal glands are unremarkable. A few tiny calcified granulomata are noted in the spleen. There are a few cysts in each kidney. Mild bilateral hydronephrosis, new. No renal stones identified. The appendix is not identified, consistent with appendectomy. No evidence of bowel obstruction. Diverticulosis of the descending colon and sigmoid colon without evidence of diverticulitis. No free intraperitoneal air or fluid identified. Handy catheter is noted in the bladder. Small amount of gas in the bladder, likely related to the presence of the catheter (infection is conceivable). Scattered atherosclerotic aortoiliac calcification. No abdominal aortic aneurysm. Mild degenerative changes of the lower thoracic spine and the lumbar spine. If additional or more detailed information is needed, an addendum can be generated on request. CT/CT abdomen pelvis w con* [id number] IMPRESSION: 1. Severe pneumonia at bilateral lung bases, new. 2. Mild bilateral hydronephrosis, new. 3. Additional, nonemergent findings as above. Radiation Dose CTDIVOL = (mGy): DLP = 636.34 (mGy-cm)
[2019-09-12] MEDS: iohexol 300 mg/mL 100 mL Btl IV (07:15)
[2019-09-12 07:38] LABS: Glucose Point of Care 179 mg/dL (70-110)
--- NOTE | 2019-09-12 07:42 | P.PN_ITS ---
Subjective Subjective: Interval history: Chart reviewed, patient known to me from previous admission. Pending official reports of CXR and CT A/P. BP improved. NPO. Reviewed CT abdomen and pelvis findings indicating pneumonia involving bilateral lower lobes and right middle lobe pneumonia. I am quite concerned about possible aspiration so will request speech therapy evaluation. Granddaughter present at bedside during my assessment. Medications: Reviewed: Yes Medication Review Details: Active Medications Generic Name Dose Route Start Last Admin Trade Name Freq PRN Reason Stop Dose Admin Aspirin 81 mg 09/12/19 09:00 Aspirin Ec PO DAILY [facility] Atorvastatin Calci um 20 mg 09/12/19 09:00 Lipitor PO DAILY [facility] Carvedilol 6.25 mg 09/12/19 09:00 Coreg PO BID [facility] Clopidogrel Bisulf ate 75 mg 09/12/19 09:00 Plavix PO DAILY [facility] Potassium Chloride 40 meq in 100 mls @ 25 mls/hr 09/12/19 07:36 K-Julien IV 09/12/19 11:35 ONCE ONE Isosorbide Mononit rate 60 mg 09/13/19 06:00 Imdur PO QAM [facility] Lisinopril 10 mg 09/12/19 09:00 Prinivil PO DAILY [facility] Nitroglycerin 0.4 mg 09/12/19 07:36 Nitrostat SUBLINGUAL Q5M PRN Chest Pain Tamsulosin HCl 0.4 mg 09/12/19 09:00 Flomax PO DAILY [facility] No Known Allergies Allergy (Verified 08/29/19 11:24) Vitals/I&O/Wt Last Vital Signs Temp 99.1 F 09/12/19 07:37 Pulse 95 09/12/19 07:37 Resp 31 H 09/12/19 07:37 BP 160/85 09/12/19 07:37 Pulse Ox 93 09/12/19 07:37 Weight last 48 hrs Weight 74.843 kg Physical Exam Const: COMMON NORMALS: no apparent distress and oriented x3 GENERAL APPEARANCE: cooperative and comfortable ORIENTATION/CONSCIOUSNESS: Yes awake HENMT: COMMON NORMALS: normocephalic, head/scalp atraumatic, hearing grossly normal bilaterally and moist oral mucous membranes HEAD & SCALP: normocephalic and atraumatic MOUTH: other (Very hoarse and soft voice) Eye: COMMON NORMALS: PERRL, EOMs intact bilaterally and conjunctivae normal CONJUNCTIVA: Yes conjunctivae normal PUPIL: Yes PERRL OTHER: -ectropion of R eye Neck/C-Spine: COMMON NORMALS: full ROM GENERAL: Yes normal visual inspection and Yes trachea midline Resp: COMMON NORMALS: normal respiratory effort, no retractions and no use of accessory muscles EFFORT & INSPECTION: Yes symmetric chest movement and Yes tachypneic AUSCULTATION: diminished lung sounds bilateral OTHER: Very weak cough Cardio: COMMON NORMALS: regular rate, regular rhythm, S1 normal heart sound, S2 normal heart sound and no murmurs RATE: regular rate RHYTHM: regular rhythm HEART SOUNDS: S1 normal and S2 normal GI: COMMON NORMALS: normal to inspection, nondistended, normoactive bowel sounds, soft to palpation and non-tender PALPATION: Yes soft Extremity: COMMON NORMALS: normal to inspection, full ROM and no clubbing, cyanosis or edema; negative for no pedal edema Neuro: COMMON NORMALS: oriented x3, moves all extremities, no focal motor deficits and no sensory deficits noted Psych: COMMON NORMALS: mental status grossly normal, thought process normal, cooperative and affect normal SPEECH: Yes soft THOUGHT PROCESS: normal t hought process Skin: COMMON NORMALS: no rashes or lesions noted, no jaundice, no petechiae and no mottling GENERAL SKIN EXAM: no rashes or lesions noted Urinary Catheter Management^: Handy: Cath Placed During This Visit: no Data : 09/12/19 05:00 09/12/19 05:00 Micro: Microbiology 09/12/19 05:00 Blood Culture - Preliminary Blood SPECIMEN COLLECTED A&P Assessment and plan (1) Pneumonia: -noted CXR and CT A/P findings showing large areas of consolidation involving bilateral lower lobes, RML -concern for aspiration given prior hx of CVA, weak cough, noted difficulty with liquids -ST evaluation appreciated: dyphagia diet with nectar thick liquids; meds in applesauce -strict aspiration precautions -IV Zosyn, Metronidazole -high oxygen requirement -close monitoring of respiratory status Status: Acute Qualifiers: Pneumonia type: aspiration pneumonia Aspiration pneumonia type: due to gastric secretions Laterality: bilateral Lung location: unspecified part of lung Qualified Code(s): J69.0 - Pneumonitis due to inhalation of food and vomit Code(s): J18.9 - Pneumonia, unspecified organism (2) Pulmonary edema: -noted on CXR, though seems more consistent with infection than fluid -received 80 mg IV Lasix in ED; hold off on further diuresis for now -BNP-344 -last Echo (05/2019): EF=30%, severe diffuse hypokinesia, trace MR, mild to moderate AR, mild TR. -requiring higher than baseline oxygen; continue to monitor respiratory status closely; BiPAP if needed. ABG noted Status: Acute Qualifiers: Chronicity: acute Qualified Code(s): J81.0 - Acute pulmonary edema Code(s): J81.1 - Chronic pulmonary edema (3) Hypertensive emergency: -initial BP was 220/110; has since improved -continue to monitor vital signs -resume oral antihypertensives as appropriate -telemetry monitoring Status: Acute Code(s): I16.1 - Hypertensive emergency (4) Abdominal pain: -concern for noted air under R diaphragm on CXR, CT A/P ordered, f/u on this -unlikely to be candidate for invasive or aggressive measures given underlying ischemic cardiomyopathy, advanced age Status: Acute Qualifiers: Abdominal location: epigastric Qualified Code(s): R10.13 - Epigastric pain Code(s): R10.9 - Unspecified abdominal pain Additional A&P Information -Advanced age -HTN -IDDM type II; 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 K replaced orally in ED -NPO for now pending imaging results -hold IVF due to pulmonary edema -fall, aspiration precautions -Dispo: home -Code status: DNR/DNI Attestations Medical Necessity Statement*: Patient requires hospitalization for continued management of aspiration pneumonia, on IV antibiotics and high oxygen requirement. Time Spent in Patient Care: Greater than 35 minutes (>than 50% of time spent in counselling and/or direct pt care on unit) . Coding Level of Care Code Acute Wastewater Treatment Engineer for Yoana Fwd Exam Problem Focused Diagnoses Pneumonia J69.0 Pneumonia type: aspiration pneumonia Aspiration pneumonia type: due to gastric secretions Laterality: bilateral Lung location: unspecified part of lung Pulmonary edema J81.0 Chronicity: acute Hypertensive emergency I16.1 Abdominal pain R10.13 Abdominal location: epigastric
[2019-09-12 08:00] LABS: Magnesium 1.4 mg/dL (1.7-2.3)
[2019-09-12] MEDS: potassium chloride premix 40 MEQ/100 ML PREMIX 25 MEQ IV (08:26)
[2019-09-12] MEDS: atorvastatin 40 mg Tablet 20 MG PO (08:27)
[2019-09-12] MEDS: aspirin 81 mg EC Tablet PO (08:27)
[2019-09-12] MEDS: clopidogrel 75 mg Tablet PO (08:27)
[2019-09-12] MEDS: lisinopril 10 mg Tablet PO (08:27)
[2019-09-12] MEDS: tamsulosin 0.4 mg Capsule PO (08:27)
[2019-09-12] MEDS: carvedilol 6.25 mg Tablet PO ×2 (08:27→18:32)
[2019-09-12 11:05] LABS: Glucose Point of Care 191 mg/dL (70-110)
--- NOTE | 2019-09-12 11:56 | PC.CHAP ---
Pastoral Care Encounter/Spiritual Assessment Type of Contact [] Declined rehabilitation specialist visit [] Patient/Family/Request visit [] Outpatient visit [x] Follow-up visit [] Physician referral [] Code/Alert [] Routine visit [] Staff referral [] Actively dying [x] Patient sleeping [] Family support [] [] Out of room [] Palliative care [] [] Receiving care in room [] Pre-surgical visit [] Trauma [] Long length of stay [] ICU visit [x] Other: Attempted follow up visit not completed Relational/Emotional Strength [] Patient feels connected with others/family/visitors/staff [] Distress [] Loneliness/isolation [] Abandonment Spirituality of Patient [] Person of Lavinia [] Attends Latter Day of their Lavinia [] Believes in Prayer [] Reads Bible or Uatsdin materials [] There are Spiritual issues to be addressed Geographic Analyst Interventions [] Prayer [] Active listening [] Non-anxious presence [] Spiritual/emotional support [] Crisis/trauma care [] Spiritual counseling [] Bereavement support [] Provided bereavement packet [] Provided Bible/devotional materials [] Provided toy/stuffed animal, coloring book to patient or family member [] Provided Communion [] Anointing/[place] [] Salvation [] Completed spiritual assessment [] Other: Impact on Illness or Injury [] Angry [] Fearful [] Anxious [] Often cries [] Exhaustion [] Unable to work [] Unable to attend mandaeism [] Unable to walk/stand [] Unable to read [] Unable to drive [] Unable to eat/drink [] Unable to sleep [] Unable to be with family [] Patient intubated [] Other: Summary Two patients in room. Room too full of med staff at bed 1 to reach bed 2 where patient was sleeping and not to be disturbed. Geographic Analyst Pamella Vargas Time spent with patient 2 minutes
[2019-09-12] MEDS: metroNIDAZOLE IV 500 MG/100 ML PREMIX 100 MG IV ×2 (14:27→22:08)
[2019-09-12] MEDS: piperacillin-tazobactam 3.375 GM in sodium chloride 0.9% (plus) 50 ML IV ×2 (15:49→23:29)
--- NOTE | 2019-09-12 18:53 | PC.NURSE ---
PATIENT DEMONSTRATING AN INCREASED WORK OF BREATHING. RESPIRATORY THERAPY CALLED TO BEDSIDE. PATIENT SUCTIONED WITH YANKEUR AND PLACED ON 12L OXY MASK AND SAT UP IN BED. NURSE NOTIFIED DR. JORDAN OF NEW RESPIRATORY STATUS AND OF CONCERN FOR PATIENT HAVING ASPIRATED ON HIS SUPPER. NO NEW ORDERS AT THIS TIME.
--- NOTE | 2019-09-12 19:22 | PC.NURSE ---
Patient lying supine in bed with HOB up. Patient on oxy mask at 15L. Patient's oxygen saturation at 96%;however, patient is very anxious. Speech mumbled. Hard to understand. Was speaking on phone. Will monitor.
--- NOTE | 2019-09-12 21:03 | PC.NURSE ---
Patient requesting to get up to BSC to attempt a BM. This nurse explained to patient that he needed to attempt to use the bedpan secondary to him being so short of breath. Patient in agreement and states, I can't walk anyway. RT at bedside and in agreement that patient is anxious. Staff attempting to calm patient to no avail. Patient keeps pulling oxy mask off. Staff explained to patient that he needed to leave oxy mask on. Dr. Connolly notified with new order received. Patient removed from bedpan. Unable to have BM at this time. Will monitor.
[2019-09-12] MEDS: haloperidol inj 5 mg/mL INJ 1 mL 2 MG IVP (22:07)
[2019-09-12] MEDS: nitroglycerin 0.4 mg sublingual Tablet SUBLINGUAL ×3 (23:15→23:25)
--- NOTE | 2019-09-12 23:15 | PC.NURSE ---
Patient complaining of chest pain. Complaining of being hot. Very anxious. SCD's off per patient request. Monitor showing ST with occasional PVC. BP 165/97, HR 107, RR 32-33, Oxygen Saturation 94% on oxy mask. NTG 0.4mg SL given. Rating pain at 6/10.
--- NOTE | 2019-09-12 23:16 | ECG_ITS ---
Measurements Intervals [place] Rate: 104 P: 20 [place]: 200 QRS: -56 QRSD: 117 T: 83 QT: 350 QTc: 462 SINUS TACHYCARDIA INCOMPLETE RIGHT BUNDLE BRANCH BLOCK [90+ ms QRS DURATION, TERMINAL R IN V1/V2, 40+ ms S IN I/aVL/V4/V5/V6] LEFT ANTERIOR FASCICULAR BLOCK [QRS AXIS <= -45, QR IN I, RS IN II] NONSPECIFIC ST & T-WAVE ABNORMALITY Compared to ECG 09/12/2019 06:28:54 Incomplete right bundle-branch block now present Left anterior fascicular block now present T-wave abnormality now present Sinus rhythm no longer present First degree AV block no longer present Left-axis deviation no longer present Electronically Signed On 09-13-2019 20:13:24 REPAIR ELECTRIC MOTOR ASSEMBLER by Elvin Olivas M.D. [id number]
--- NOTE | 2019-09-12 23:17 | PC.NURSE ---
RT here to do EKG
--- NOTE | 2019-09-12 23:20 | PC.NURSE ---
Continues to complain of chest pain at 5/10. NTG 0.4mg SL given. BP 150/95, HR [address] with PVC's, RR 32-34, Oxygen Saturation 90% per oxy mask. Continues to be anxious. Will monitor
--- NOTE | 2019-09-12 23:25 | PC.NURSE ---
Continues to be anxious and complaining of chest pain 12/17. NTG 0.4mg SL given. BP 135/83, HR [address] with frequent PVC's, RR 32, Oxygen Saturation 87% on oxy mask. Will monitor.
--- NOTE | 2019-09-12 23:41 | PC.NURSE ---
Dr. Connolly notified of patient's condition. Is on way down to assess patient.
--- NOTE | 2019-09-12 23:50 | PC.NURSE ---
Dr. Connolly at bedside. New orders received for Troponin Series, ABG's, and Bi-PAP. When asked by this nurse if chest was still hurting, patient started rubbing lower abdomen. This nurse also received an order for PCXR. RT at bedside. ABG's drawn. Bi-Pap applied. Patient wanting Bi-Pap off. This nurse has explained to him several times about the need to keep mask on. Patient keeps shaking head no. Will monitor.
[2019-09-13] VITALS (13 sets, daily range): BP systolic 75–169; BP diastolic 50–96; PULSE 66–120; RESP 18–32; TEMP 36.4–36.6; O2SAT 89–98
--- NOTE | 2019-09-13 00:09 | XR_ITS ---
WS: [id number] Portable AP upright chest, 09/13/2019 Clinical Data: Hypoxic respiratory failure, chest pain, congestive heart failure. Comparison: Portable chest, 09/12/2019 Findings: No nodules, masses or effusions are seen. The bibasilar consolidation has not changed. The upper lobes are clear. The heart size is normal. The aortic arch and descending aorta tortuosity. The right diaphragm is elevated.I XR/XR chest 1V portable [id number] Impression: 1. No change in bibasilar consolidation. 2. Atherosclerosis.
[2019-09-13 00:11] LABS: ABG PCO2 44.7 mmHg (35-45); ABG PH Result 7.38 (7.35-7.45); Alveolar-Arterial Oxygen Gradi 38.8 mmHg (5-10); Base Excess ABG 0.6 mmol/L (-2.0-2.0); Blood Gas Allen Test Pos; Blood Gas Sample Site Radial, left; Blood Gas Sample Type Arterial; Carboxyhemoglobin 0.7 %THgb (0.4-20.1); HCO3 ABG 26.2 mmol/L (22-26); HGB O2 Sat 85.8 % (95-100); Ionized Calcium Level - ABG 1.2 mmol/L (1.1-1.4); Methemoglobin 0.3 % (0.4-1.5); Oxygen Device OXY MASK; Oxygen Saturation ABG 86.8; PO2 ABG 53.6 mmHg (80.0-100.0); Potassium Level - ABG 3.3 mmol/L (3.5-5.0); Total Hemoglobin 14.3 g/dL (14-18)
--- NOTE | 2019-09-13 00:16 | PC.NURSE ---
Patient wanting Bi-Pap mask off. This nurse explained the possible consequences of the Bi-Pap coming off with patient voicing understanding. Continues to rub lower abdomen. This nurse asked if it was his catheter bothering him and he shook head no'. Dr. Connolly updated on patient request and wishes. Awaiting return message/call.
--- NOTE | 2019-09-13 01:00 | PC.NURSE ---
Patient pulled PIID out of Left AC. Pressure bandage applied. Order's received for heated high flow oxygen. RT notified. Precedex drip also ordered for agitation/sedation. Pharmacy notified. Mable, RN/Him Manager notified of drip along with ICU. Unable to find anything where this nurse cannot hang drip. PIID restarted with 20 gauge angio cath x1 attempt using aseptic technique. Secured with coban and josh guard. Dr. Connolly also notified of baseline troponin of 133. Will monitor.
[2019-09-13 01:01] LABS: Troponin(5th) Baseline 133 ng/mL (0-15)
--- NOTE | 2019-09-13 02:00 | PC.NURSE ---
[employer] Teacher at nurses station. Didn't realize that this nurse was using Precedex drip for sedation and would be titrating drip for sedation. Didn't feel comfortable letting this nurse perform drip on this unit. Dr. Connolly notified with new order received for Haldol 2mg IVP. Haldol given as ordered. Patient attempting to pull high flow cannula out of his nose. This nurse once again explained to patient the need for the high flow oxygen. Keeps shaking head no. Will monitor.
[2019-09-13 02:01] LABS: Basophils % 0.2 %; Hematocrit 43.8 % (42.0-52.0); Hemoglobin 14.5 g/dL (11.7-16.6); Lymphocytes # 0.5 10^3/uL (0.8-4.8); Lymphocytes % 4.4 %; Mean Corpuscular HGB Conc 33.1 g/dL (30.0-36.0); Mean Corpuscular Hemoglobin 29.1 pg (28.0-34.0); Mean Corpuscular Volume 87.8 fL (80-94); Mean Platelet Volume 10.5 fL (7.4-10.4); Monocytes # 0.7 10^3/uL (0.2-0.9); Monocytes % 6.5 %; Neutrophils # 9.5 10^3/uL (1.8-7.7); Neutrophils % 88.4 %; Nucleated Red Blood Cells % 0 %; Platelet Count 162 10^3/cmm (130-400); Red Blood Count 4.99 10^6/uL (4.1-5.3); Red Cell Distribution Width 12.5 % (12.1-15.1); White Blood Count 10.8 10^3/uL (4.0-10.0)
[2019-09-13 02:09] LABS: Alanine Aminotransferase 11 U/L (0-41); Albumin Level 3.9 g/dL (3.5-5.2); Alkaline Phosphatase 74 IU/L (40-130); Anion Gap 20.7 (5-19); Aspartate Amino Transferase 13 U/L (0-40); Blood Urea Nitrogen 25 mg/dL (8-23); Calcium 9.3 mg/dL (8.5-10.5); Carbon Dioxide 26 mmol/L (22-29); Chloride 99 mmol/L (98-107); Globulin 4.3 g/dL (1.3-4.6); Glucose 317 mg/dL (74-106); Potassium 3.7 mmol/L (3.5-5.1); Sodium 142 mmol/L (136-145); Total Bilirubin 0.8 mg/dL (0.15-1.2); Total Protein 8.2 g/dL (6.6-8.7)
[2019-09-13 02:27] LABS: Slide Review Slide Review Perform
[2019-09-13] MEDS: haloperidol inj 5 mg/mL INJ 1 mL 2 MG IVP (02:29)
--- NOTE | 2019-09-13 02:30 | PC.NURSE ---
Dr. Connolly here to see patient. Attempting to get patient comfortable. This nurse received order for Morphine 2mg IVP for agitation. Will monitor.
--- NOTE | 2019-09-13 03:00 | PC.NURSE ---
Patient attempting to get out of bed. Found sitting on side of bed. Patient lying supine in bed. Pulling at high flow cannula. Will monitor. MS 2mg IVP given
[2019-09-13 03:04] LABS: Troponin 5 2HR Delta -7.1 ABS# (0-10)
[2019-09-13] MEDS: morphine 4 mg/mL SDV 1 mL 2 MG IVP ×4 (03:07→18:19)
--- NOTE | 2019-09-13 03:54 | PC.NURSE ---
Patient continues to pull high flow cannula out of his nose. Oxygen saturation running 88-89%. HR 87 with monitor showing SR with frequent PVC's. Will monitor.
--- NOTE | 2019-09-13 04:21 | PM.MISC ---
Miscellaneous Note Purpose of Documentation: This evening patient had episodes of respiratory distress, was placed on BiPAP, but could not tolerate BiPAP, was put on heated high flow, saturating in the high 90s, still complaining of some shortness of breath, having mild retractions. Patient was given some Haldol to help with anxiety, but it did not help, was given morphine, patient seemed to settle down. Patient has bibasilar pneumonia. pH 7.38, PCO2 42.4, PO2 68.1. Patient was also complaining of some chest pain, his baseline troponin I 05, his 120-minute troponin I 25, his EKG showed PVCs, no other significant ST-T wave changes. Troponin elevations likely type II NSTEMI related to supply demand ischemia from acute respiratory failure. We will continue to monitor patient very closely, prognosis is guarded, patient is DNR/DNI, thus I decided not to move the patient to intensive care unit.
[2019-09-13] MEDS: isosorbide mononitrate ER 30 mg Tablet 60 MG PO (05:49)
--- NOTE | 2019-09-13 05:52 | PC.NURSE ---
Heated high flow cannula found on floor. Oxy mask replaced on patient at 14-15L of oxygen. Patient took medications with little pudding. Will monitor.
--- NOTE | 2019-09-13 05:57 | ECG_ITS ---
Measurements Intervals Triplett Rate: 97 P: 31 MN: 204 QRS: -46 QRSD: 121 T: 90 QT: 386 QTc: 493 SINUS RHYTHM WITH FREQUENT VENTRICULAR PREMATURE COMPLEXES LEFT ANTERIOR FASCICULAR BLOCK [QRS AXIS <= -45, QR IN I, RS IN II] Compared to ECG 09/12/2019 06:28:54 Ventricular premature complex(es) now present Left anterior fascicular block now present First degree AV block no longer present Left-axis deviation no longer present Intraventricular conduction delay no longer present Prolonged QT interval no longer present Electronically Signed On 09-13-2019 20:16:42 RESEARCH MECHANIC by Elvin Olivas M.D. [email or web address]
[2019-09-13] MEDS: metroNIDAZOLE IV 500 MG/100 ML PREMIX 100 MG IV (06:15)
--- NOTE | 2019-09-13 06:51 | PC.NURSE ---
Entered patient's room to hang IV antibiotic. Patient requesting that I leave him alone. I'm ready....can't you leave me alone. This nurse explained to patient that he needed to speak with physician about his wishes. States, OK . Dr. Connolly notified. Will monitor.
[2019-09-13 07:10] LABS: Troponin 5 6HR 132.4 ng/L (0-15); Troponin 5 6HR Delta -0.6 ng/L (0-12)
[2019-09-13] MEDS: piperacillin-tazobactam 3.375 GM in sodium chloride 0.9% (plus) 50 ML IV (07:28)
--- NOTE | 2019-09-13 08:34 | P.PN_ITS ---
Subjective Subjective: Interval history: Respiratory status decompensated overnight, high suspicion for continued aspiration. Required high flow NC though unable to keep it on consistently. AM labs noted. Patient seen and examined, multiple family members at bedside, currently on 15 L oxygen mask saturating at 93 to 94%. Very coarse diffusely on auscultation, able to tolerate pudding consistency but seems to aspirate on all other consistencies. Patient would like to be kept comfortable and family agrees to this. We will transition him to comfort measures and transfer him to a private room. Medications: Reviewed: Yes Medication Review Details: Current Medications Generic Name Dose Route Start Last Admin Trade Name Freq PRN Reason Stop Dose Admin Aspirin 81 mg 09/12/19 09:00 09/12/19 08:27 Aspirin Ec PO 81 mg DAILY BRANDON Administration Atorvastatin Calci um 20 mg 09/12/19 09:00 09/12/19 08:27 Lipitor PO 20 mg DAILY BRANDON Administration Carvedilol 6.25 mg 09/12/19 09:00 09/12/19 18:32 Coreg PO 6.25 mg BID BRANDON Administration Clopidogrel Bisulf ate 75 mg 09/12/19 09:00 09/12/19 08:27 Plavix PO 75 mg DAILY BRANDON Administration Piperacillin Sod/T azobactam 50 mls @ 12.5 mls /hr 09/12/19 16:00 09/13/19 07:28 Sod 3.375 gm/ So dium Chloride IV 12.5 mls/hr Q8H BRANDON Administration Protocol Metronidazole 500 mg in 100 mls @ 100 mls/hr 09/12/19 15:00 09/13/19 06:15 Flagyl Iv IV 100 mls/hr Q8H BRANDON Administration Protocol Isosorbide Mononit rate 60 mg 09/13/19 06:00 09/13/19 05:49 Imdur PO 60 mg QAM BRANDON Administration Lisinopril 10 mg 09/12/19 09:00 09/12/19 08:27 Prinivil PO 10 mg DAILY BRANDON Administration Nitroglycerin 0.4 mg 09/12/19 07:36 09/12/19 23:25 Nitrostat SUBLINGUAL 0.4 mg Q5M PRN Administration Chest Pain Tamsulosin HCl 0.4 mg 09/12/19 09:00 09/12/19 08:27 Flomax PO 0.4 mg DAILY BRANDON Administration Vitals/I&O/Wt Last Vital Signs Temp 97.6 F 09/13/19 07:07 Pulse 82 09/13/19 07:07 Resp 25 H 09/13/19 07:07 BP 109/65 09/13/19 07:07 Pulse Ox 91 09/13/19 03:24 09/12/19 09/13/19 09/13/19 22:59 06:59 14:59 Intake Total 450 / 450 180 / 630 Output Total 1000 / 2600 450 / 3050 Balance -550 / -2150 -270 / -2420 Weight last 48 hrs Weight 74.843 kg Physical Exam 2 Const: COMMON NORMALS: no apparent distress GENERAL APPEARANCE: cooperative, ill appearing, frail appearing and appears older than stated age ORIENTATION/CONSCIOUSNESS: Yes awake HENMT: COMMON NORMALS: normocephalic and head/scalp atraumatic HEAD & SCALP: normocephalic and atraumatic MOUTH: moist mucous membranes abnormal Details: parched and other (Very hoarse and soft voice) Eye: COMMON NORMALS: PERRL, EOMs intact bilaterally and conjunctivae normal CONJUNCTIVA: Yes conjunctivae normal PUPIL: Yes PERRL OTHER: -ectropion of R eye Neck/C-Spine: COMMON NORMALS: full ROM GENERAL: Yes normal visual inspection and Yes trachea midline Resp: COMMON NORMALS: normal respiratory effort, no retractions and no use of accessory muscles EFFORT & INSPECTION: Yes symmetric chest movement and Yes tachypneic AUSCULTATION: rhonchi throughout and diminished lung sounds bilateral OTHER: Very weak cough, on 15 L oxy-mask Cardio: COMMON NORMALS: regular rate, regular rhythm, S1 normal heart sound, S2 normal heart sound and no murmurs RATE: regular rate RHYTHM: regular rhythm HEART SOUNDS: S1 normal and S2 normal GI: COMMON NORMALS: normal to inspection, nondistended, normoactive bowel sounds, soft to palpation and non-tender PALPATION: Yes soft Extremity: COMMON NORMALS: normal to inspection, full ROM and no clubbing, cyanosis or edema; negative for no pedal edema Neuro: COMMON NORMALS: moves all extremities, no focal motor deficits and no sensory deficits noted Psych: COMMON NORMALS: mental status grossly normal, thought process normal, cooperative and affect normal SPEECH: Yes soft THOUGHT PROCESS: normal thought process Skin: COMMON NORMALS: no rashes or lesions noted, no jaundice, no petechiae and no mottling GENERAL SKIN EXAM: no rashes or lesions noted Urinary Catheter Management^: Handy: Cath Placed During This Visit: no Urethral Indwelling: Yes Reason for Continuing Indwelling Catheter: Hospice/Comfort/Palliative Care Data : 09/13/19 01:45 09/13/19 01:45 Micro: Microbiology 09/12/19 05:00 Blood Culture - Preliminary Blood NEGATIVE TO DATE A&P Assessment and plan (1) Pneumonia: -noted CXR and CT A/P findings showing large areas of consolidation involving bilateral lower lobes, RML -concern for aspiration given prior hx of CVA, weak cough, noted difficulty with liquids -ST evaluation appreciated: dyphagia diet with nectar thick liquids; meds in applesauce -strict aspiration precautions -IV Zosyn, Metronidazole -high oxygen requirement -close monitoring of respiratory status Status: Acute Qualifiers: Aspiration pneumonia type: due to gastric secretions Laterality: bilateral Lung location: unspecified part of lung Pneumonia type: aspiration pneumonia Qualified Code(s): J69.0 - Pneumonitis due to inhalation of food and vomit Code(s): J18.9 - Pneumonia, unspecified organism (2) Pulmonary edema: -noted on CXR, though seems more consistent with infection than fluid -received 80 mg IV Lasix in ED; hold off on further diuresis for now -BNP-344 -last Echo (05/2019): EF=30%, severe diffuse hypokinesia, trace MR, mild to moderate AR, mild TR. -requiring higher than baseline oxygen; continue to monitor respiratory status closely; BiPAP if needed. ABG noted -troponins noted, negative delta, no acute ischemic changes on ECG Status: Acute Qualifiers: Chronicity: acute Qualified Code(s): J81.0 - Acute pulmonary edema Code(s): J81.1 - Chronic pulmonary edema (3) Hypertensive emergency: -initial BP was 220/110; has since improved -continue to monitor vital signs -resume oral antihypertensives as appropriate -telemetry monitoring Status: Acute Code(s): I16.1 - Hypertensive emergency (4) Abdominal pain: -concern for noted air under R diaphragm on CXR, CT A/P ordered, f/u on this -unlikely to be candidate for invasive or aggressive measures given underlying ischemic cardiomyopathy, advanced age Status: Acute Qualifiers: Abdominal location: epigastric Qualified Code(s): R10.13 - Epigastric pain Code(s): R10.9 - Unspecified abdominal pain Additional A&P Information -Advanced age -HTN -IDDM type II; 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 K replaced orally in ED -dysphagia diet with nectar thick liquids though seems to be aspirating on all but pudding consistency -hold IVF due to pulmonary edema -fall, aspiration precautions -Dispo: home -Code status: DNR/DNI -very guarded prognosis. Given decompensation in respiratory status and per patient and family wishes, transition to comfort measures at this time. Family present during my bedside assessment, nursing staff updated accordingly. Attestations Medical Necessity Statement*: Patient requires hospitalization for continued management of aspiration pneumonia, has high oxygen requirement, on IV antibiotics. Time Spent in Patient Care: Greater than 35 minutes (>than 50% of time spent in counselling and/or direct pt care on unit) . Coding Level of Care Code Acute Network Contract Manager for Chg 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
[2019-09-13] MEDS: aspirin 81 mg EC Tablet PO (08:39)
[2019-09-13] MEDS: atorvastatin 40 mg Tablet 20 MG PO (08:39)
[2019-09-13] MEDS: carvedilol 6.25 mg Tablet PO (08:58)
[2019-09-13] MEDS: clopidogrel 75 mg Tablet PO (08:58)
[2019-09-13] MEDS: tamsulosin 0.4 mg Capsule PO (08:58)
[2019-09-13] MEDS: lisinopril 10 mg Tablet PO (08:58)
[2019-09-13] MEDS: LORazepam 2 mg/mL INJ 1 mL IVP (19:11)
[2019-09-14] MEDS: LORazepam 2 mg/mL INJ 1 mL IVP ×3 (07:38→21:56)
[2019-09-14 08:29] VITALS: PULSE 76; O2SAT 95
--- NOTE | 2019-09-14 09:17 | P.PN_ITS ---
Subjective Subjective: Interval history: Becoming hypotensive, continued tachypnea. Patient seen and examined, granddaughter at bedside, seems to be resting though GD states he has not really been responsive since her arrival about 2 hrs ago. Medications: Reviewed: Yes Medication Review Details: Current Medications Generic Name Dose Route Start Last Admin Trade Name Freq PRN Reason Stop Dose Admin Atropine Sulfate 4 drop 09/13/19 09:14 09/13/19 17:14 Isopto Atropine SUBLINGUAL 4 drop Q2H PRN Administration SECRETIONS Lorazepam 2 mg 09/13/19 16:37 09/14/19 07:38 Ativan IVP 2 mg Q2H PRN Administration ANXIETY Morphine Sulfate 2 mg 09/13/19 16:37 09/13/19 18:19 Morphine IVP 2 mg Q2H PRN Administration SEVERE PAIN Vitals/I&O/Wt Last Vital Signs Temp 97.8 F 09/13/19 20:00 Pulse 76 09/14/19 08:29 Resp 32 H 09/13/19 20:00 BP 75/50 09/13/19 20:00 Pulse Ox 95 09/14/19 08:29 09/13/19 09/14/19 09/14/19 22:59 06:59 14:59 Intake Total 20 / 460 Output Total 350 / 350 Balance 20 / 460 -350 / 110 Physical Exam Const: COMMON NORMALS: no apparent distress GENERAL APPEARANCE: ill appearing, frail appearing and appears older than stated age OTHER: -patient unresponsive HENMT: COMMON NORMALS: normocephalic and head/scalp atraumatic HEAD & SCALP: normocephalic and atraumatic MOUTH: moist mucous membranes abnormal Details: parched and other (Very hoarse and soft voice) Eye: COMMON NORMALS: PERRL, EOMs intact bilaterally and conjunctivae normal CONJUNCTIVA: Yes conjunctivae normal PUPIL: Yes PERRL OTHER: -ectropion of R eye Neck/C-Spine: COMMON NORMALS: full ROM GENERAL: Yes normal visual inspection and Yes trachea midline Resp: COMMON NORMALS: normal respiratory effort, no retractions and no use of accessory muscles EFFORT & INSPECTION: Yes symmetric chest movement and Yes tachypneic AUSCULTATION: rhonchi throughout and diminished lung sounds bilateral OTHER: Very weak cough, on 12 L oxy-mask Cardio: COMMON NORMALS: regular rate, regular rhythm, S1 normal heart sound, S2 normal heart sound and no murmurs RATE: regular rate RHYTHM: regular rhythm HEART SOUNDS: S1 normal and S2 normal GI: COMMON NORMALS: normal to inspection, nondistended, normoactive bowel sounds, soft to palpation and non-tender PALPATION: Yes soft Extremity: COMMON NORMALS: normal to inspection, full ROM and no clubbing, cyanosis or edema; negative for no pedal edema Neuro: OTHER: -patient currently unresponsive Psych: OTHER: -patient currently unresponsive Skin: COMMON NORMALS: no rashes or lesions noted, no jaundice, no petechiae and no mottling GENERAL SKIN EXAM: no rashes or lesions noted Urinary Catheter Management^: Handy: Cath Placed During This Visit: yes Urethral Indwelling: Yes Reason for Continuing Indwelling Catheter: Hospice/Comfort/Palliative Care Urinary Catheter Date of Insertion: 09/12/19 Urinary Catheter Time of Insertion: 06:56 Data : 09/13/19 01:45 09/13/19 01:45 Micro: Microbiology 09/12/19 05:00 Blood Culture - Preliminary Blood NEGATIVE TO DATE A&P Assessment and plan (1) Pneumonia: -noted CXR and CT A/P findings showing large areas of consolidation involving bilateral lower lobes, RML -concern for aspiration given prior hx of CVA, weak cough, noted difficulty with liquids -ST evaluation appreciated: dyphagia diet with nectar thick liquids; meds in applesauce -strict aspiration precautions -off antibiotics as is on comfort measures -high oxygen requirement -monitoring of respiratory status Status: Acute Qualifiers: Aspiration pneumonia type: due to gastric secretions Laterality: bilateral Lung location: unspecified part of lung Pneumonia type: aspiration pneumonia Qualified Code(s): J69.0 - Pneumonitis due to inhalation of food and vomit Code(s): J18.9 - Pneumonia, unspecified organism (2) Pulmonary edema: -noted on CXR, though seems more consistent with infection than fluid -received 80 mg IV Lasix in ED; hold off on further diuresis for now -BNP-344 -last Echo (05/2019): EF=30%, severe diffuse hypokinesia, trace MR, mild to moderate AR, mild TR. -requiring higher than baseline oxygen; continue to monitor respiratory status closely; BiPAP if needed. ABG noted -troponins noted, negative delta, no acute ischemic changes on ECG Status: Acute Qualifiers: Chronicity: acute Qualified Code(s): J81.0 - Acute pulmonary edema Code(s): J81.1 - Chronic pulmonary edema (3) Hypertensive emergency: -initial BP was 220/110; has since improved -continue to monitor vital signs -resume oral antihypertensives as appropriate -telemetry monitoring Status: Acute Code(s): I16.1 - Hypertensive emergency (4) Abdominal pain: -concern for noted air under R diaphragm on CXR, CT A/P ordered, f/u on this -unlikely to be candidate for invasive or aggressive measures given underlying ischemic cardiomyopathy, advanced age Status: Acute Qualifiers: Abdominal location: epigastric Qualified Code(s): R10.13 - Epigastric pain Code(s): R10.9 - Unspecified abdominal pain Additional A&P Information -Advanced age -HTN -IDDM type II; 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 K replaced orally in ED -dysphagia diet with nectar thick liquids though seems to be aspirating on all but pudding consistency -hold IVF due to pulmonary edema -fall, aspiration precautions -Dispo: home -Code status: DNR/DNI -very guarded prognosis. Continue comfort measures at this time. Attestations Medical Necessity Statement*: Patient requires hospitalization for continued comfort measures given continued decompensation. Time Spent in Patient Care: Greater than 35 minutes (>than 50% of time spent in counselling and/or direct pt care on unit) . Coding Level of Care Code Acute Child Care Centre Director for Chg 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
[2019-09-14 13:38] VITALS: PULSE 77; O2SAT 92
[2019-09-15 04:51] VITALS: RESP 20
[2019-09-15] MEDS: morphine 4 mg/mL SDV 1 mL 2 MG IVP (04:51)
[2019-09-15] MEDS: LORazepam 2 mg/mL INJ 1 mL IVP ×3 (06:02→13:10)
--- NOTE | 2019-09-15 09:32 | PM.DCS ---
Discharge Providers Date of Admission: 09/12/19 06:34 Date of Discharge: Date of Discharge: September 15, 2019 Attending Provider at Admission: Elvin Evans MD Attending Provider at Discharge: Rehana Feng MD Diagnoses at Discharge Discharge Diagnosis (1) Pneumonia: Status: Acute Problem details: -noted CXR and CT A/P findings showing large areas of consolidation involving bilateral lower lobes, RML -concern for aspiration given prior hx of CVA, weak cough, noted difficulty with liquids -ST evaluation appreciated: dyphagia diet with nectar thick liquids; meds in applesauce -strict aspiration precautions -off antibiotics as is on comfort measures -high oxygen requirement -monitoring of respiratory status Qualifiers: Aspiration pneumonia type: due to gastric secretions Laterality: bilateral Lung location: unspecified part of lung Pneumonia type: aspiration pneumonia Qualified Code(s): J69.0 - Pneumonitis due to inhalation of food and vomit (2) Pulmonary edema: Status: Acute Problem details: -noted on CXR, though seems more consistent with infection than fluid -received 80 mg IV Lasix in ED; hold off on further diuresis for now -BNP-344 -last Echo (05/2019): EF=30%, severe diffuse hypokinesia, trace MR, mild to moderate AR, mild TR. -requiring higher than baseline oxygen; continue to monitor respiratory status closely; BiPAP if needed. ABG noted -troponins noted, negative delta, no acute ischemic changes on ECG Qualifiers: Chronicity: acute Qualified Code(s): J81.0 - Acute pulmonary edema (3) Hypertensive emergency: Status: Acute Problem details: -initial BP was 220/110; has since improved -continue to monitor vital signs -resume oral antihypertensives as appropriate -telemetry monitoring (4) Abdominal pain: Status: Acute Problem details: -concern for noted air under R diaphragm on CXR, CT A/P negative -unlikely to be candidate for invasive or aggressive measures given underlying ischemic cardiomyopathy, advanced age Qualifiers: Abdominal location: epigastric Qualified Code(s): R10.13 - Epigastric pain Other Information Additional DC diagnoses/information: -Advanced age -HTN -IDDM type II; 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 K replaced orally in ED Reason for Visit Reason for Visit: Reason For Visit: hypoxic resp failure, cp, chf Hospital Course Hospital Course: Patient was initially admitted to the cardiac stepdown unit due to concern for hypertensive urgency as well as pulmonary edema. There was also initial concern for possible air under the right diaphragm which was ruled out with a CT of the abdomen and pelvis. Patient was found to have extensive bilateral pneumonia secondary to aspiration and respiratory status quickly begun to decline despite antibiotics and supplemental oxygen. He continues to have a high oxygen requirement. Goals of care discussion was had with the patient and family and they opted for transition to comfort measures. Patient was moved to the medical surgical floor for continued care. Family would like to take him home with hospice which is currently being arranged. Discharge Summary: -Handy catheter left in place on discharge -Continue supplemental oxygen as needed with appropriate titration for patient comfort -Hospice provider to prescribe comfort meds Physical Exam Const: COMMON NORMALS: no apparent distress GENERAL APPEARANCE: ill appearing, frail appearing and appears older than stated age ORIENTATION/CONSCIOUSNESS: Yes awake OTHER: -patient unresponsive HENMT: COMMON NORMALS: normocephalic and head/scalp atraumatic HEAD & SCALP: normocephalic and atraumatic MOUTH: moist mucous membranes abnormal Details: parched and other (Very hoarse and soft voice) Eye: COMMON NORMALS: PERRL, EOMs intact bilaterally and conjunctivae normal CONJUNCTIVA: Yes conjunctivae normal PUPIL: Yes PERRL OTHER: -ectropion of R eye Neck/C-Spine: COMMON NORMALS: full ROM GENERAL: Yes normal visual inspection and Yes trachea midline Resp: COMMON NORMALS: normal respiratory effort, no retractions and no use of accessory muscles EFFORT & INSPECTION: Yes symmetric chest movement and Yes tachypneic AUSCULTATION: rhonchi throughout and diminished lung sounds bilateral OTHER: Very weak cough, on 12 L oxy-mask Cardio: COMMON NORMALS: regular rate, regular rhythm, S1 normal heart sound, S2 normal heart sound and no murmurs RATE: regular rate RHYTHM: regular rhythm HEART SOUNDS: S1 normal and S2 normal GI: COMMON NORMALS: normal to inspection, nondistended, normoactive bowel sounds, soft to palpation and non-tender PALPATION: Yes soft Extremity: COMMON NORMALS: normal to inspection, full ROM and no clubbing, cyanosis or edema; negative for no pedal edema Neuro: COMMON NORMALS: moves all extremities, no focal motor deficits and no sensory deficits noted OTHER: -patient currently unresponsive Psych: COMMON NORMALS: mental status grossly normal, thought process normal, cooperative and affect normal SPEECH: Yes soft THOUGHT PROCESS: normal thought process OTHER: -patient currently unresponsive Skin: COMMON NORMALS: no rashes or lesions noted, no jaundice, no petechiae and no mottling GENERAL SKIN EXAM: no rashes or lesions noted Urinary Catheter Management^: Handy: Cath Placed During This Visit: yes Urethral Indwelling: Yes Reason for Continuing Indwelling Catheter: Hospice/Comfort/Palliative Care Urinary Catheter Date of Insertion: 09/12/19 Urinary Catheter Time of Insertion: 06:56 Discharge Data Data Completed and Pending: Completed Studies During Hospitalization Category Date Time Status CT abdomen pelvis w con* [id number] Stat Cat Scan 09/12/19 06:46 Completed XR chest 1V padmnii ble [id number] Stat Exams 09/12/19 04:25 Completed XR chest 1V padmini ble [id number] Stat Exams 09/13/19 00:09 Completed Pending at discharge Category Date Time Status Blood Culture Sta t Lab 09/12/19 04:25 Results Vitals: Last Vital Signs Temp 97.8 F 09/13/19 20:00 Pulse 77 09/14/19 13:38 Resp 20 H 09/15/19 04:51 BP 75/50 09/13/19 20:00 Pulse Ox 92 09/14/19 13:38 Discharge Plan Discharge Patient Disposition: Hospice - Home Condition: Stable Prescriptions: Discontinued carvedilol 6.25 mg Tablet 6.25 mg PO BID RF: 0 isosorbide mononitrate 30 mg Tablet Extended Release 24 Hr 60 mg PO QAM RF: 0 sertraline [Zoloft] 100 mg Tablet 200 mg PO BEDTIME RF: 0 clopidogrel [Plavix] 75 mg Tablet 75 mg PO DAILY RF: 0 aspirin [Aspir-81] 81 mg Tablet,Delayed Release (Dr/Ec) 81 mg PO DAILY RF: 0 tamsulosin [Flomax] 0.4 mg Capsule 0.4 mg PO DAILY RF: 0 simvastatin [Zocor] 20 mg Tablet 20 mg PO DAILY RF: 0 ranitidine HCl [Zantac] 150 mg Tablet 150 mg PO BID RF: 0 lisinopril 10 mg Tablet 10 mg PO DAILY RF: 0 nitroglycerin [Nitrostat] 0.4 mg Tablet, Sublingual 0.4 mg SUBLINGUAL Q5M PRN (Reason: Chest Pain) RF: 0 Levemir FlexTouch U-100 Insuln 100 unit/mL (3 mL) Insulin Pen See Rx Instructions .ROUTE .COMPLEX RF: 0 Discharge Orders: Discharge Order (Routine); Ordered 09/15/19 Ordered By: Rehana Feng Referrals: Telephone Hospice [Outside] Discharge Diet: As Directed Discharge Activity: Bedrest Patient Instructions: Hospice Care, Pain Management in the Elderly ([facility]) Discharge Date/Time: 09/15/19 13:33 Discharge Attestations Time Spent in Discharge Care*: greater than 30 min Specific Discharge Activities: Specific discharge activities: educating patient, educating and/or supporting family/caregiver, discussing with correctional case manager/social workers/dc planners, documenting/other paperwork and evaluating patient/reviewing data Status at Discharge: Cognitive status at discharge: moderately impaired cognition, Functional status at discharge: bed bound Overall status at discharge: patient has a new baseline Quality Metrics Clinical Quality Measures During this hospital stay, did patient experience: None Coding Level of Care Code 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
--- NOTE | 2019-09-15 09:34 | PC.SOCIAL ---
IMM Not Updated Patient on comfort measures and discharging with hospice. IMM Not given.
[2019-09-15 10:24] VITALS: RESP 20
--- NOTE | 2019-09-15 13:30 | PC.NURSE ---
Patient IV taken out, belongings sent with family. EMS transported pt [facility] with no complications. Family left after patient. No other needs from family. Discharge information explained to alexa. Jakub CAI
== END 2019-09-15 13:33 | disposition hospice, home (50) | DRG 178 ==
LOC: CSU 07:31 → ER 17:10 → MEDSURG 09-13 12:10
PROVIDERS: Family Medicine; Admitting Provider Internal Medicine; Emergency Provider Emergency Medicine; Family Provider Family Medicine; Visit Provider Family Medicine
DX: J69.0 Pneumonitis due to inhalation of food and vomit (principal); I16.1 Hypertensive emergency; I69.951 Hemiplegia and hemiparesis following unspecified cerebrovascular disease affecting right dominant side; I50.9 Heart failure, unspecified; I11.0 Hypertensive heart disease with heart failure; I25.5 Ischemic cardiomyopathy; I25.2 Old myocardial infarction; I69.991 Dysphagia following unspecified cerebrovascular disease; R13.10 Dysphagia, unspecified; E11.9 Type 2 diabetes mellitus without complications; E78.5 Hyperlipidemia, unspecified; I25.10 Atherosclerotic heart disease of native coronary artery without angina pectoris; Z66 Do not resuscitate; R10.13 Epigastric pain; Z51.5 Encounter for palliative care; I95.9 Hypotension, unspecified
CPT/HCPCS: 12345; 36415; 36416; 36600; 51702; 71045; 74177; 80051; 80053; 81001; 82803; 82810; 82962; 83605; 83735; 83880; 83986; 84484; 85025; 85610; 85730; 87040; 87804; 92523; 92610; 93005; 96374; 96375; 99284; J1630; J1940; J2060; J2270; J2543; J3480; J3490; Q9967; S0030